=== PATIENT | female | born 1955 | race Caucasian/White ===

== ENCOUNTER → 2016-11-13 | Outpatient (CLI) | payer BC, OTHER ==
[~2016-11-13] MED LIST: ASPI81TA28 PO; GABA-112 PO; LISI-461 PO; LORA-741 PO; MAGN400T6 PO; MELO7.5T5 PO; SIMV20TA2 PO; TRAM-10 PO
--- NOTE | 2016-11-14 14:26 | MAMMOGRAPHY REPORT ---
BILATERAL DIGITAL SCREENING MAMMOGRAM TOMOSYNTHESIS WITH CAD: 11/13/2016 CLINICAL HISTORY: Routine screening. Patient has no complaints. TECHNIQUE: Breast tomosynthesis in addition to standard 2D mammography was performed. Current study was also evaluated with a Computer Aided Detection (CAD) system. COMPARISON: Comparison is made to exams dated: 11/09/2015 mammogram, 06/09/2013 mammogram, 10/12/2014 m ammogram, 05/29/2011 mammogram, 06/03/2012 mammogram, and 05/24/2010 mammogram - [facility]. BREAST COMPOSITION: The tissue of both breasts is almost entirely fatty. FINDINGS: No suspicious masses, calcifications, or areas of architectural distortion are noted in e ither breast. There has been no significant interval change compared to prior exams. IMPRESSION: ACR BI-RADS CATEGORY 1: NEGATIVE There is no mammographic evidence of malignancy. A 1 year screening mammogram is recommended. The p atient will receive written notification of the results. Approximately 10% of breast cancers are not detected with mammography. A negative mammographic repor t should not delay biopsy if a clinically suggestive mass is present. Inga Sanchez M.D. /:11/14/2016 07:50:42 Clam Grader: Cristin GUAN(R)(M), [facility] letter sent: Normal 1/2 BI-RADS Code: ACR BI-RADS Category 1: Negative
== END | disposition home or self-care (01) ==
LOC: C.MAMM 14:38
PROVIDERS: ATTEND Internal Medicine
DX: Z12.31 Encounter for screening mammogram for malignant neoplasm of breast (principal)

== ENCOUNTER → 2016-11-29 | Outpatient (CLI) | payer BC, OTHER ==
--- NOTE | 2016-11-29 11:25 | DIAGNOSTIC IMAGING REPORT ---
LUMBAR SPINE 5 VIEWS CLINICAL HISTORY: Lumbago. FINDINGS: 5 views of the lumbar spine are correlated with abdominal CT dated 06/13/2011. The skeletal structures are osteopenic. There is no radiographic evidence of fracture or malalignment. Vertebral body height and alignment are maintained. The transverse and spinous processes are intact. There is no evidence of spondylolysis. Small anterior osteophytes are seen throughout. There is advanced degenerative disc space narrowing with associated endplate sclerosis at L5-S1. A posterior disc osteophyte complex is seen at this level. Only mild degenerative disc space narrowing is seen at the remaining lumbar levels. Mild facet arthropathy is noted in the lower lumbar region. The visualized bony pelvis appears intact. Mild sclerotic change is noted in the sacroiliac joints. There is a nonobstructed abdominal bowel gas pattern. Moderate colonic fecal retention is observed. Phlebolith are noted in the left hemipelvis. IMPRESSION: 1. No acute bony abnormality is seen involving the lumbosacral spine. 2. Osteopenia and mild degenerative change as detailed above. Electronically signed by: Nikolai Bess M.D. 11/29/2016 11:23 AM Dictated Date/Time: 11/29/2016 11:19 AM
--- NOTE | 2016-11-29 11:33 | DIAGNOSTIC IMAGING REPORT ---
SI JOINTS 3 OR MORE VIEWS CLINICAL HISTORY: Lumbago, sacroiliitis pain COMPARISON STUDY: None FINDINGS: Mild sclerosis of the sacroiliac joints bilaterally. No evidence of bony ankylosis. Sacral foramina are symmetric. IMPRESSION: Mild degenerative sclerosis of the sacroiliac joints bilaterally. No acute process. Electronically signed by: Wilmer Reaves M.D. 11/29/2016 11:31 AM Dictated Date/Time: 11/29/2016 11:31 AM
== END | disposition home or self-care (01) ==
LOC: C.RADBC 10:38
PROVIDERS: ATTEND Physician Assistant
DX: M54.5 Low back pain (principal); M46.1 Sacroiliitis, not elsewhere classified

== ENCOUNTER → 2017-04-02 | Outpatient (CLI) | payer BC, OTHER ==
--- NOTE | 2017-04-02 16:33 | DIAGNOSTIC IMAGING REPORT ---
MRI OF THE LUMBAR SPINE WITHOUT IV CONTRAST CLINICAL HISTORY: Lumbago. Lumbar radiculopathy. COMPARISON STUDY: Radiographs of lumbar spine dated 11/29/2016. TECHNIQUE: MRI of the lumbar spine is performed utilizing various T1 and T2-weighted sequences in the axial and sagittal planes. IV contrast was not administered for this examination. FINDINGS: Lumbar spine: Marrow signal intensity is slightly heterogeneous. Vertebral body height and alignment are maintained throughout the lumbar spine. Tiny anterior osteophytes are seen throughout. The transverse and spinous processes appear intact. No destructive bony lesion is seen. Mild degenerative endplate edema is seen at L3-L4 and L5-S1. Chronic endplate change is seen at additional levels. Intervertebral discs: There is degenerative disc desiccation and loss of height throughout the lumbar spine. Loss of height is severe at L5-S1 and moderate at L3-L4 and L4-L5. Spinal cord: Visualized portions of the spinal cord are normal in morphology and signal intensity. The conus medullaris terminates at the level of L2. The nerve roots of the cauda equina are normal in morphology. These are tethered at L3-L4. L1-L2: There is a small disc bulge eccentric to the left. The central canal is clear. Mild facet arthropathy is of no consequence. The neural foramina are patent. L2-L3: Mild facet arthropathy is of no consequence. The central canal and neural foramina are patent. L3-L4: There is a posterior disc bulge with annular fissure. A small superiorly extruded fragment eccentric to the right is seen on sagittal image #6 and measures 9 mm. In conjunction with hypertrophy of the ligamentum flavum there is severe central canal stenosis at this level. The minimum AP diameter measures 4 mm. There is bilateral subarticular stenosis with impingement on exiting bilateral L3 nerve roots. There is also impingement on the bilateral transiting nerve roots, with tethering of the cauda equina. L4-L5: There is posterior disc extrusion. In conjunction with hypertrophy of the ligamentum flavum this causes moderate to severe central canal stenosis with a minimum AP diameter of 5 mm. The disc bulge may impinge on the transiting nerve roots. There is only mild bilateral subarticular stenosis. The neural foramina are patent. Facet arthropathy is of no consequence. L5-S1: A posterior disc osteophyte complex is of no consequence. The central canal is patent. There is left-sided subarticular stenosis with possible impingement on the exiting left L5 nerve root. This also abuts the transiting left S1 nerve root. Facet arthropathy causes mild bilateral neural foraminal stenosis. Soft tissues: The paraspinous soft tissues are normal in appearance. A retroaortic left renal vein is incidentally noted. IMPRESSION: 1. There is a disc herniation at L3-L4 with a superiorly extruded fragment. This causes severe central canal stenosis, and there is tethering of the nerve roots of the cauda equina at this level. 2. A large disc extrusion at L4-L5 causes moderate to severe central canal stenosis. 3. Spondylotic change at additional levels as detailed above. See discussion for detailed level by level analysis. 4. Degenerative disc disease as above with chronic degenerative endplate change and endplate edema as above. 5. No destructive bony lesion is identified. Dictated: 04/02/2017 4:21 PM Transcribed: 04/02/2017 4:33 PM [email or web address] Electronically signed by: Nikolai Bess M.D. 04/02/2017 4:34 PM Dictated Date/Time: 04/02/2017 4:21 PM
== END | disposition home or self-care (01) ==
LOC: C.MRIBC 15:25
PROVIDERS: ATTEND Physician Assistant Medical
DX: M51.16 Intervertebral disc disorders with radiculopathy, lumbar region (principal)

== ENCOUNTER → 2017-11-15 | Outpatient (CLI) | payer OTHER ==
[~2017-11-15] MED LIST changes: -MAGN400T6 PO; -MELO7.5T5 PO; -TRAM-10 PO
--- NOTE | 2017-11-15 13:55 | MAMMOGRAPHY REPORT ---
BILATERAL DIGITAL SCREENING MAMMOGRAM TOMOSYNTHESIS WITH CAD: 11/15/2017 CLINICAL HISTORY: Routine screening. Patient has no complaints. TECHNIQUE: Breast tomosynthesis in addition to standard 2D mammography was performed. Current study was also evaluated with a Computer Aided Detection (CAD) system. COMPARISON: Comparison is made to exams dated: 11/13/2016 mammogram, 11/09/2015 mammogram, 10/12/2014 ma mmogram, 06/09/2013 mammogram, 06/03/2012 mammogram, and 05/29/2011 mammogram - [facility]ter. BREAST COMPOSITION: The tissue of both breasts is almost entirely fatty. FINDINGS: No suspicious masses, calcifications, or areas of architectural distortion are noted in ei ther breast. There has been no significant interval change compared to prior exams. IMPRESSION: ACR BI-RADS CATEGORY 1: NEGATIVE There is no mammographic evidence of malignancy. A 1 year screening mammogram is recommended. The pa tient will receive written notification of the results. Approximately 10% of breast cancers are not detected with mammography. A negative mammographic report should not delay biopsy if a clinically suggestive mass is present. Inga Sanchez M.D. /:11/15/2017 12:51:07 Wireless Internet Installer: Laurence GUAN(Alanis)(M), [facility] letter sent: Normal 1/2 BI-RADS Code: ACR BI-RADS Category 1: Negative
== END | disposition home or self-care (01) ==
LOC: C.MAMM 12:19
PROVIDERS: ATTEND Internal Medicine
DX: Z12.31 Encounter for screening mammogram for malignant neoplasm of breast (principal)